=== PATIENT | male | born 1980 | race Caucasian/White ===

== ENCOUNTER 2020-12-10 17:37 | Emergency (ER) | payer MEDICARE, MEDICAID, SELFPAY ==
[2020-12-10 17:38] VITALS: BP 141/97; PULSE 85; RESP 16; TEMP 35.7; O2SAT 99; BMI 25.4
[2020-12-10 17:44] VITALS: BP 141/97; PULSE 84; RESP 16; TEMP 35.7; O2SAT 100
[2020-12-10 18:57] LABS: Absolute Neutrophil Count 4.7 X10^3/uL (2.0-7.7); Basophil# 0.03 X10^3/uL; Basophil% 0.4 % (0-1); Eosinophil# 0.16 X10^3/uL; Hematocrit 40.1 % (40-54); Hemoglobin 13.4 g/dL (13.0-16.5); Lymphocyte % 29.1 % (19-41); Mean Corp Hgb Conc 33.4 g/dL (32-36); Mean Corpuscular Hgb 30.9 pg (27.0-32.0); Mean Corpuscular Volume 92.4 fL (80-94); Mean Platelet Vol. 12.2 fl (6.2-12.0); Monocyte# 0.69 X10^3/uL; Monocyte% 8.7 % (0-10); NRBC Flagged by Analyzer 0 % (0-5); Neutrophil # 4.69 X10^3/uL (2.7-7.7); Neutrophil % 59.4 % (47-70); Platelet Count 212 K/mm3 (150-450); RBC Distribution Width CV 11.7 % (11.6-14.6); RBC Distribution Width SD 40.2 fl (35.1-43.9); Red Blood Count 4.34 M/mm3 (4.6-6.2); White Blood Count 7.9 K/mm3 (4.4-11.0)
--- NOTE | 2020-12-10 18:57 | EKG12_ITS ---
Test Reason : [facility] Blood Pressure : / mmHG Vent. Rate : 083 BPM Atrial Rate : 083 BPM P-R Int : 162 ms QRS Dur : 098 ms QT Int : 424 ms P-R-T Axes : 059 034 026 degrees QTc Int : 498 ms Normal sinus rhythm Prolonged QT Abnormal ECG Confirmed by ORVILLE GUEVARA, JUAN PABLO ([id number]), restaurant expeditor BETTY ARTIS ([id number]) on 12/11/2020 2:14:33 PM Referred By: Confirmed By:JUAN PABLO JACINTO MD
--- NOTE | 2020-12-10 18:59 | ED.RN ---
NO OLD EKGS IN MUSE
--- NOTE | 2020-12-10 19:00 | ED.DCSUM_ITS ---
History of Present Illness Informant: Patient Narrative: 40-year-old male brought in by police for the evaluation of paranoid thinking and suicidal thoughts. Patient tells me that in October he was staying at a homeless detention in [place] when he believes he overheard a murder take place. He states that people have been following him and bugging his phone. He states that he is seeing more patterns in the way things are happening around him that make him believe that the murders/drug dealers are out to get him. He states that he has a history of heroin addiction and supposed to be taking Suboxone but after a recent O his car was impounded and when he finally got his car out of impound he then lost it yesterday somewhere. He was found wandering through the [facility] by [employer] department was taken to the [facility]. He has been working with a drug counselor and spoke with that person today and expressed thoughts that life is possibly not worth living. He denies any plan. At that point police were called to the [facility] and they brought him here. He tells me that because of the original events in [place] he has been unable to sleep so since he cannot sleep he started doing some methamphetamines. He states he also bought some Valium then to help him not take the amphetamines. He reports that he believes all the events to be true and that he is not delusional. <Gab Borja - Last Filed: 12/10/20 20:03> <Dolores Richmond - Last Filed: 12/11/20 02:46> Chief Complaint: Suicidal Past Medical History Past Medical History: - - Polysubstance drug abuse Surgical History: noncontributory Lives: Homeless Smoking Status: Current every day smoker Drugs: Heroin, - - Methamphetamines <Gab Borja - Last Filed: 12/10/20 20:03> <Dolores Richmond - Last Filed: 12/11/20 02:46> - Allergies and Home Meds Allergies/Adverse Reactions: Allergies No Known Allergies Allergy (Verified 12/10/20 17:44) Primary Care Physician: [facility],Out of [NON-STAFF] - Review of Systems General: Denies: Chills, Fever, Sweats Eyes: Denies: Visual changes - bilaterally, Diplopia ENT: Denies: Rhinorrhea, Sore throat Cardiovascular: Denies: Chest pain, Palpitations Respiratory: Denies: Dyspnea, Cough, Dyspnea on exertion Gastrointestinal: Denies: Abdominal pain, Nausea, Vomiting, Diarrhea, Melena, Hematochezia Genitourinary: Denies: Dysuria, Hematuria, Frequency Musculoskeletal: Denies: Back pain, Extremity Pain Skin: Denies: Rash, Wounds Neurological: Denies: Headache, Weakness, Numbness Psych: Reports: Depression, Anxiety, Suicidal thoughts, Suicidal ideations, - - Paranoia <Gab Borja - Last Filed: 12/10/20 20:03> Physical Exam Vital Signs/Narrative: Vital Signs Temp Pulse Resp BP Pulse Ox 12/10/20 17:44 96.3 F L 84 16 141/97 H 100 12/10/20 17:38 96.3 F L 85 16 141/97 H 99 Inital Vital Signs reviewed: Yes General: Well nourished, Well developed, No Acute Distress Head: Normocephalic, Atraumatic Eyes: Perrl, EOMI ENT: Moist mucous membranes, No rhinorrhea Neck: Supple, Nontender Cardiovascular: Regular rate, Regular rhythm, No murmurs Respiratory: No distress, CTA bilaterally, Chest nontender Abdomen: Soft, Nontender, Nondistended, Normal bowel sounds Back: Nontender, Normal Inspection Extremities: Nontender, No edema Skin: Normal color, No rash Neurological: Alert, Oriented x3, Cranial nerves II-XII grossly intact, Normal Strength, Normal Sensation Psychological: Depressed, Tearful, - - Patient expresses paranoid thinking. <Gab Borja - Last Filed: 12/10/20 20:03> Vital Signs/Narrative: Vital Signs Pulse Resp BP Pulse Ox 12/11/20 02:21 17 12/11/20 00:08 18 12/10/20 23:02 18 12/10/20 22:55 88 20 H 129/83 H 99 <Dolores Richmond - Last Filed: 12/11/20 02:46> Diagnostic/Tx/Re-eval Laboratory Last Values WBC 7.9 K/mm3 (4.4-11.0) 12/10/20 18:30 RBC 4.34 M/mm3 (4.6-6.2) L 12/10/20 18:30 Hgb 13.4 g/dL (13.0-16.5) 12/10/20 18:30 Hct 40.1 % (40-54) 12/10/20 18:30 MCV 92.4 fL (80-94) 12/10/20 18:30 MCH 30.9 pg (27.0-32.0) 12/10/20 18:30 MCHC 33.4 g/dL (32-36) 12/10/20 18:30 RDW Std Deviation 40.2 fl (35.1-43.9) 12/10/20 18:30 RDW Coeff of Phuong 11.7 % (11.6-14.6) 12/10/20 18: Plt Count 212 K/mm3 (150-450) 12/10/20 18: MPV 12.2 fl (6.2-12.0) H 12/10/20 18:30 Immature Gran % (Auto) 0.400 % (0.0-0.9) 12/10/20 18:30 Neut % (Auto) 59.4 % (47-70) 12/10/20 18:30 Lymph % (Auto) 29.1 % (19-41) 12/10/20 18:30 Alger % (Auto) 8.7 % (0-10) 12/10/20 18:30 Eos % (Auto) 2.0 % (0-5) 12/10/20 18:30 Baso % (Auto) 0.4 % (0-1) 12/10/20 18:30 Absolute Neuts (auto) 4.7 X10^3/uL (2.0-7.7) 12/10/20 18:30 Absolute Lymphs (auto) 2.30 X10^3/uL (0.83-4.51) 12/10/20 18:30 Nucleated RBC % 0 % (0-5) 12/10/20 18:30 Sodium 136 mmol/L (136-145) 12/10/20 18:30 Potassium 3.3 mmol/L (3.5-5.1) L 12/10/20 18:30 Chloride 102 mmol/L (98-107) 12/10/20 18:30 Carbon Dioxide 28.0 mmol/L (21.0-32.0) 12/10/20 18:30 Anion Gap 6 (5-15) 12/10/20 18:30 BUN 14 mg/dL (7-18) 12/10/20 18:30 Creatinine 1.21 mg/dL (0.70-1.30) 12/10/20 18:30 Estim Creat Clear Calc 93.55 ml/min 12/10/20 18:30 Est GFR (MDRD) Af Amer 86 mL/min (>60) 12/10/20 18:30 Est GFR (MDRD) Non-Af 71 mL/min (>60) 12/10/20 18:30 BUN/Creatinine Ratio 11.6 RATIO (10-20) 12/10/20 18:30 Glucose 88 mg/dL (74-106) 12/10/20 18:30 Calcium 8.9 mg/dL (8.5-10.1) 12/10/20 18:30 Total Bilirubin 0.70 mg/dL (0.20-1.00) 12/10/20 18:30 AST 113 U/L (15-37) H 12/10/20 18:30 ALT 94 U/L (16-61) H 12/10/20 18:30 Alkaline Phosphatase 94 U/L (45-117) 12/10/20 18:30 Total Protein 7.5 g/dL (6.4-8.2) 12/10/20 18:30 Albumin 4.1 g/dL (3.2-5.0) 12/10/20 18:30 Globulin 3.4 g/dL (2.2-4.2) 12/10/20 18:30 Albumin/Globulin Ratio 1.2 RATIO (0.9-2.4) 12/10/20 18:30 Urine Opiates Screen NEGATIVE (< 300 ng/mL) 12/10/20 18:30 Urine Methadone Screen NEGATIVE (< 300 ng/mL) 12/10/20 18:30 Ur Barbiturates Screen NEGATIVE (< 200 ng/mL) 12/10/20 18:30 Ur Phencyclidine Scrn NEGATIVE (< 25 ng/mL) 12/10/20 18:30 Ur Amphetamines Screen POSITIVE (<1000 ng/mL) H 12/10/20 18:30 U Methamphetamin-MDMA POSITIVE (< 500 ng/mL) H 12/10/20 18:30 U Benzodiazepines Scrn POSITIVE (< 200 ng/mL) H 12/10/20 18:30 Urine Cocaine Screen NEGATIVE (< 300 ng/mL) 12/10/20 18:30 U Cannabinoids Screen NEGATIVE (< 50 ng/mL) 12/10/20 18:30 Ur Drug Screen Comment 12/10/20 18:30 Ethyl Alcohol < 3.0 mg/dL 12/10/20 18:30 - EKG Initial EKG Interpretation: Sinus Rhythm - EKG demonstrates a normal sinus rhythm at a rate of 83. No ectopy or concerning features of ACS. <Gab Borja - Last Filed: 12/10/20 20:03> - Medical Decision Making Patient signed out to me pending evaluation by crisis. Patient spoke to crisis on the phone. They did feel patient would benefit from inpatient psychiatric treatment. Patient has been accepted at [facility] and will be transferred there for further evaluation. <Dolores Richmond - Last Filed: 12/11/20 02:46> ED Disposition <Gab Borja - Last Filed: 12/10/20 20:03> <Dolores Richmond - Last Filed: 12/11/20 02:46> - Plan for ED Patient: Disposition: Psychiatric Hospital or Unit Diagnosis: Suicidal ideation, Paranoia Referrals: [facility] Doctor,Out of [NON-STAFF] -
[2020-12-10 19:11] LABS: ALB/GLOB Ratio 1.2 RATIO (0.9-2.4); AST(SGOT) 113 U/L (15-37); Alanine Aminotransfer ALT/SGPT 94 U/L (16-61); Albumin, Serum 4.1 g/dL (3.2-5.0); Alkaline Phosphatase 94 U/L (45-117); Anion Gap 6 (5-15); BUN 14 mg/dL (7-18); BUN/Creat Ratio 11.6 RATIO (10-20); Calcium,Total 8.9 mg/dL (8.5-10.1); Chloride 102 mmol/L (98-107); Creatinine, Serum 1.21 mg/dL (0.70-1.30); EST Glomerular Filtration Rate 71 mL/min (>60); Est Glom Filt Rate - Afr Amer 86 mL/min (>60); Estimated Creatinine Clearance 93.55 ml/min; Globulin 3.4 g/dL (2.2-4.2); Glucose 88 mg/dL (74-106); Potassium 3.3 mmol/L (3.5-5.1); Protein, Total 7.5 g/dL (6.4-8.2); Sodium Level 136 mmol/L (136-145)
[2020-12-10 19:16] LABS: Alcohol, Blood (Medical)-Serum < 3.0 mg/dL
[2020-12-10 19:57] LABS: Amphetamine Urine VISTA POSITIVE (<1000 ng/mL); Barbiturate Urine VISTA NEGATIVE (< 200 ng/mL); Benzodiazepine Urine VISTA POSITIVE (< 200 ng/mL); Cocaine Urine VISTA NEGATIVE (< 300 ng/mL); Ecstacy Urine VISTA POSITIVE (< 500 ng/mL); Methadone Urine VISTA NEGATIVE (< 300 ng/mL); PCP Urine VISTA NEGATIVE (< 25 ng/mL); THC Urine VISTA NEGATIVE (< 50 ng/mL); Vista UDS pH Range 5
[2020-12-10 20:07] VITALS: RESP 16
--- NOTE | 2020-12-10 20:10 | ED.RN ---
PAGED CRISIS TO SEE THIS PT
--- NOTE | 2020-12-10 20:19 | CM.ED ---
Social Work Telephone call to Inga Marks. Inga updated on patient. Clinical information faxed to crisis via paralegal legal secretary. Inga to call to speak with patient when able. Inga updated that only results not back yet is the COVID test. Crisis to evaluate and assess patient. Baltazar GONZALES, ELLIOT
[2020-12-10 21:34] VITALS: RESP 17
[2020-12-10 22:55] VITALS: BP 129/83; PULSE 88; RESP 20; O2SAT 99
[2020-12-10 23:02] VITALS: RESP 18
[2020-12-11 00:08] VITALS: RESP 18
[2020-12-11 02:21] VITALS: RESP 17
[2020-12-11 03:08] VITALS: BP 120/80; PULSE 88; RESP 20; TEMP 36.3; O2SAT 100
== END 2020-12-11 04:32 ==
PROVIDERS: Emergency Medicine; Emergency Provider Emergency Medicine
DX: F22 Delusional disorders (principal); R45.851 Suicidal ideations; F11.10 Opioid abuse, uncomplicated; F17.200 Nicotine dependence, unspecified, uncomplicated
CPT/HCPCS: 80053; 80307; 82077; 85025; 87426; 93005; 99285